=== PATIENT | female | born 1980 | race American Indian/Alaskan Native ===

== ENCOUNTER 2019-03-17 20:29 | Emergency (ER) | payer MEDICARE ==
[2019-03-17] MEDS ORDERED: SODIUM CHLORIDE 0.9% 1000 ML 1,000 ML IV ONE (20:45)
[2019-03-17] MEDS ORDERED: ONDANSETRON 4 MG/2 ML INJ IV ONE (20:45)
[2019-03-17] MEDS ORDERED: MORPHINE 4 MG/1 ML INJ IV ONE (20:45)
[2019-03-17] MEDS ORDERED: methylPREDNISolone Sod Succinate 125 MG/2 ML INJ IV ONE (20:46)
--- NOTE | 2019-03-17 20:50 | Emergency Department Report ---
ED Abdominal Pain HPI - General Chief Complaint: Abdominal Pain Stated Complaint: DIARRHEA,ABDOMINAL CRAMPING Time Seen by Provider: 03/17/19 20:36 Source: patient, EMS Mode of arrival: Stretcher Limitations: Physical Limitation - History of Present Illness Initial Comments: Patient is a 38-year-old female with history of Crohn's disease. Patient prese nted to the ER complaining of 5 day history of diffuse abdominal pain associated to his nausea and diarrhea. Patient stated that she is taking her regular medication. She denied any fever or chills. Patient denied any dysuria or urinary frequency. No hematochezia, melena or hematemesis. MD Complaint: abdominal pain -: days(s) (5) Location: diffuse Radiation: none Migration to: no migration Severity scale (0 -10): 7 Quality: sharp - Related Data Allergies Allergy/AdvReac Type Severity Reaction Status Date / Time ketorolac [From Toradol] Allergy Unknown Verified 03/17/19 20:45 tramadol Allergy Unknown Verified 03/17/19 20:45 ED Review of Systems ROS: Stated complaint: DIARRHEA,ABDOMINAL CRAMPING Other details as noted in HPI Comment: All other systems reviewed and negative Constitutional: denies: chills, fever Respiratory: denies: cough, shortness of breath Cardiovascular: denies: chest pain, palpitations Gastrointestinal: abdominal pain, nausea, diarrhea. denies: vomiting, constipation, hematemesis, melena, hematochezia Musculoskeletal: denies: back pain Neurological: denies: headache, weakness, numbness, paresthesias, confusion ED Past Medical Hx - Past Medical History Previous Medical History?: Yes Hx Asthma: Yes Additional medical history: Crohn's disease, anemia - Surgical History Past Surgical History?: Yes Additional Surgical History: breast reduction, I&D buttocks area, jaw surgery - Social History Smoking Status: Never Smoker Substance Use Type: Alcohol ED Physical Exam - General Limitations: Physical Limitation General appearance: alert, in no apparent distress - Head Head exam: Present: atraumatic, normocephalic, normal inspection - ENT ENT exam: Present: mucous membranes dry - Neck Neck exam: Present: normal inspection, full ROM. Absent: tenderness, meningismu s, lymphadenopathy, thyromegaly - Respiratory Respiratory exam: Present: normal lung sounds bilaterally - Cardiovascular Cardiovascular Exam: Present: regular rate, normal rhythm, normal heart sounds - GI/Abdominal GI/Abdominal exam: Present: soft, normal bowel sounds. Absent: distended, tenderness, guarding, rebound, rigid, organomegaly, mass, bruit, pulsatile mass, hernia - Extremities Exam Extremities exam: Present: normal inspection, full ROM, normal capillary refill - Back Exam Back exam: Present: normal inspection, full ROM. Absent: CVA tenderness (R), CVA tenderness (L), muscle spasm, paraspinal tenderness, vertebral tenderness - Neurological Exam Neurological exam: Present: alert, oriented X3, CN II-XII intact, normal gait, reflexes normal - Psychiatric Psychiatric exam: Present: normal mood - Skin Skin exam: Present: warm, intact, normal color ED Course Vital Signs 03/17/19 03/17/19 20:42 21:04 Temperature 98.2 F Pulse Rate 82 Respiratory 16 16 Rate Blood Pressure 121/53 O2 Sat by Pulse 98 Oximetry ED Medical Decision Making - Lab Data Result diagrams: 03/17/19 22:00 - Medical Decision Making Patient is a 38-year-old female with history of Crohn's disease. Patient presented to the ER complaining of 5 day history of diffuse abdominal pain associated to his nausea and diarrhea. Patient stated that she is taking her regular medication. She denied any fever or chills. Patient denied any dysuria or urinary frequency. No hematochezia, melena or hematemesis. Critical care attestation.: If time is entered above; I have spent that time in minutes in the direct care of this critically ill patient, excluding procedure time. ED Disposition Clinical Impression: Abdominal pain, Crohn's disease Disposition: - TO HOME OR SELFCARE Is pt being admited?: No Condition: Stable Instructions: Abdominal Pain (ED), Crohn Disease (ED) Referrals: PRIMARY CARE, [Referring] - 3-5 Days
[2019-03-17 21:29] LABS: Bilirubin,Urine NEG (Negative); Blood,Urine NEG (Negative); Color,Urine Yellow (Yellow); Hyaline Casts,Urine 1 /LPF; Mucus,Urine 1+ /HPF; Protein,Urine <15 mg/dL mg/dL (Negative); Urobilinogen,Urine < 2.0 mg/dL (<2.0)
[2019-03-17 22:23] LABS: Hematocrit 35.8 % (30.3-42.9); Hemoglobin 11.8 gm/dl (10.1-14.3); Mean Corpuscular HGB Conc 33 % (30-34); Mean Corpuscular Volume 88 fl (79-97); Platelet Count 348 K/mm3 (140-440); Red Blood Count 4.08 M/mm3 (3.65-5.03)
[2019-03-17 22:33] LABS: Alanine Aminotransferase 12 units/L (7-56); Albumin 3.2 g/dL (3.9-5); BUN/Creatinine Ratio 12; Blood Urea Nitrogen 6 mg/dL (7-17); Calcium 8.1 mg/dL (8.4-10.2); Hemolysis Index 9
[2019-03-17 22:34] LABS: Bilirubin,Direct < 0.2 mg/dL (0-0.2)
[2019-03-17] MEDS ORDERED: diphenhydrAMINE 50 MG/ML VIAL IV ONE (22:44)
[2019-03-17] MEDS ORDERED: diphenhydrAMINE 50 MG/ML VIAL ONE (22:44)
[2019-03-17 23:14] VITALS: BP 128/74
== END 2019-03-18 00:10 | disposition home or self-care (01) ==
LOC: ED 20:29
DX: K50.90 Crohn's disease, unspecified, without complications (principal); J45.909 Unspecified asthma, uncomplicated
CPT/HCPCS: 36415; 80048; 80076; 81001; 83690; 84703; 85025; 96361; 96374; 96375; 99284; J1200; J2270; J2405; J2930; J7030